=== PATIENT | male | born 1935 | race Caucasian/White ===

== ENCOUNTER 2020-03-11 13:57 | Emergency (ER) | payer MEDICARE ==
[~2020-03-11] VITALS: Ht 172.7 cm; Wt 73.9 kg
[2020-03-11] MEDS ORDERED: TETANUS/DIPHTHERIA TOX ADULT 0.5 ML SYR IM ONE (14:00)
--- NOTE | 2020-03-11 15:03 | Diagnostic Imaging Report ---
EXAMINATION: HAND 3+ VIEWS LEFT INDICATION: Trauma COMPARISON: None FINDINGS: Mildly displaced oblique fracture of the second metacarpal with apex dorsal angulation. Associated overlying soft tissue laceration with gauze packing material in place. No additional fractures identified. 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 IMPRESSION: Mildly displaced oblique fracture of the second metacarpal with apex dorsal angulation. Severe first CMC joint degenerative changes. Signed by: Reta Santos MD on 03/11/2020 2:59 PM
[2020-03-11] MEDS ORDERED: CEFAZOLIN SOD 1 GM VIAL IM ONE (15:30)
--- NOTE | 2020-03-11 15:41 | Emergency Department Note ---
History of Present Illnes History of Present Illness Chief Complaint: Laceration History of Present Illness This is a 84 year old male Patient in from home with a laceration to t he back side of his left hand. The patient reports he was using a mitre saw and raised his hand up into the saw blade. Patient arrived with a gross amount of blood on his clothing as well as in the vehicle that brought him here. Dr. Little at bedside for evaluation of laceration. Historian: Patient Arrival Mode: Car Art Objects Salesperson Required: No Onset (how long ago): minute(s) Location: LEFT HAND Quality: LACERATION Radiation: Reports non-radiation Severity: moderate Onset quality: sudden Timing of current episode: constant Progression: unchanged Chronicity: new Context: Denies recent illness Relieving factors: none Exacerbating factors: none Associated symptoms: Reports denies other symptoms Treatments prior to arrival: none Past Medical/Family History Physician Review I have reviewed the patient's past medical and family history. Any updates have been documented here. Past Medical History Recent Fever: No Clinical Suspicion of Infectio: No New/Unexplained Change in Ment: No Past Medical History: Hypertension, CAD, Kidney Stones, GERD, Hyperlipedemia Past Surgical History: CABG, PCI Other Surgery: Rt Shoulder rotator cuff repair Social History Smoking Cessation: Never Smoker Counseling Performed: No Alcohol Use: None Any Illegal Drug Use: No TB Exposure/Symptoms: No Physically hurt or threatened: No Family History Family history of heart diseas: No Other Last Tetanus: unknown Review of Systems Review of Systems Constitutional: Reports no symptoms EENTM: Reports no symptoms Cardiovascular: Reports no symptoms Respiratory: Reports no symptoms Gastrointestinal: Reports no symptoms Genitourinary: Reports no symptoms Musculoskeletal: Reports other (LACERATION TO DORSUM OF LEFT HAND) Integumentary: Reports no symptoms Neurological: Reports no symptoms Psychological: Reports no symptoms Endocrine: Reports no symptoms Hematological/Lymphatic: Reports no symptoms Review of other systems All other systems reviewed and negative. Physical Exam Related Data Allergies: Coded Allergies: No Known Allergies (Unverified , 03/11/20) Triage Vital Signs Vital Signs Date Time Temp Pulse Resp B/P (MAP) Pulse Ox O2 Delivery O2 Flow Rate FiO2 03/11/20 14:03 97.4 116 17 141/95 97 Vital signs reviewed: Yes Physical Exam CONSTITUTIONAL Constitutional: Reports well-developed, Reports well-nourished HENT HENT: Reports normocephalic, Reports atraumatic, Reports oropharynx clear/moist, Reports nose normal HENT L/R: Reports left ext ear normal, Reports right ext ear normal EYES Eyes: Reports PERRL, Reports conjunctivae normal NECK Neck: Reports ROM normal PULMONARY Pulmonary: Reports effort normal, Reports breath sounds normal CARDIOVASCULAR Cardiovascular: Reports regular rhythm, Reports heart sounds normal, Reports capillary refill normal, Reports normal rate GASTROINTESTINAL Abdominal: Reports soft, Reports nontender, Reports bowel sounds normal GENITOURINARY Genitourinary: Reports exam deferred SKIN Skin: Reports warm, Reports dry MUSCULOSKELETAL Musculoskeletal: Reports other (8 CM LACERATION TO DORSUM LEFT HAND, NO EXTENSION STR OF INDEX AND LONG FINGER (EXT TENDON LACERATIION)) NEUROLOGICAL Neurological: Reports alert, Reports oriented x 3, Reports no gross motor or sensory deficits PSYCHOLOGICAL Psychological: Reports mood/affect normal, Reports judgement normal Results Imaging Imaging results reviewed: Yes Impressions EXAMINATION: HAND 3+ VIEWS LEFT INDICATION: Trauma COMPARISON: None FINDINGS: Mildly displaced oblique fracture of the second metacarpal with apex dorsal angulation. Associated overlying soft tissue laceration with gauze packing material in place. No additional fractures identified. 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 IMPRESSION: Mildly displaced oblique fracture of the second metacarpal with apex dorsal angulation. Severe first CMC joint degenerative changes. Signed by: Reta Santos MD on 03/11/2020 2:59 PM Assessment & Plan Medical Decision Making MDM LACERATION REPAIR BY DR ARCHIBALD, IRRIGATED COPIOUSLY Reassessment Reassessment PER DR CRISTELA DC WITH KEFLEX/BACTRIM, F/U WITH [facility] HAND SURGEON. I ALSO GAVE TYL#3 Assessment & Plan Final Impression: (1) Open fracture of metacarpal bone of left hand (2) Laceration of hand, left Depart Disposition: HOME, SELF-CARE Last Vital Signs Date Time Temp Pulse Resp B/P (MAP) Pulse Ox O2 Delivery O2 Flow Rate FiO2 03/11/20 14:03 97.4 116 17 141/95 97 Medications in the ED Tetanus/ Diphtheria Toxoids 0.5 ml ONCE ONCE IM Last administered on 03/11/20at 15:13; Admin Dose 0.5 ML; Start 03/11/20 at 14:00; Stop 03/11/20 at 14:01; Status DC Cefazolin Sodium 1 gm NOW ONCE IM ; Start 03/11/20 at 15:30; Stop 03/11/20 at 15:31; Status JUANITA RAMIREZ MD Mar 11, 2020 15:41
--- NOTE | 2020-03-13 15:18 | Operative Report ---
DATE OF PROCEDURE: 03/11/2020 SURGEON: Dale Melendez MD CHIEF COMPLAINT: Powered saw injury, left hand. POSTOPERATIVE DIAGNOSES: 1. Open fracture, left index finger metacarpal shaft. 2. Laceration of left index finger extensor tendon. 3. Laceration of left long finger extensor tendon. ANESTHESIA: Local. HISTORY: The patient is an 84-year-old [id number] male, who was using a powered miter saw earlier today when the saw cut him on the dorsal aspect of the left hand. The patient is on oral anticoagulation and was bleeding quite profusely, came to the emergency room. A pressure dressing was placed and radiographs indicate presence of displaced fracture of the shaft and given the nature of this injury, this was an open fracture. Emergent Hand Surgery consultation was then requested. PROCEDURE IN DETAIL: The patient's pressure dressing was removed and the skin was gently cleansed with alcohol prep pads, 1% Xylocaine with epinephrine was injected into the soft tissues of the wound. Once hemostasis had been achieved, the length of the wound was measured and measured 8.5 cm, and extended from the dorsal aspect of the base of the left thumb across the metacarpals to the ulnar side of the hand. There were exposed lacerated tendons to the left index and the left long fingers. The fracture fragments were exposed. The wound was then copiously irrigated of all particulate matter using several 100 mL of dilute Betadine solution. At this point, once all the particulate matter had been removed, the soft tissues were closed with 5-0 Prolene in a running subcuticular fashion. Bactroban ointment, Xeroform gauze, and a sterile dressing were applied. A fiberglass splint was fashioned to maintain the wrist in a modest amount of extension and the MPs at 60 to 70 degrees and the IPs neutral, and this was held in place with a loosely wrapped Anton wrap. The patient was given intravenous antibiotics and then discharged 1st per ER protocol on oral antibiotics and oral analgesic medication. Dale Melendez MD ER/MODL /[id number]
== END 2020-03-11 16:15 | disposition home or self-care (01) ==
LOC: ER 13:57
DX: S62.301B Unspecified fracture of second metacarpal bone, left hand, initial encounter for open fracture (principal); W29.3XXA Contact with powered garden and outdoor hand tools and machinery, initial encounter; Y92.008 Other place in unspecified non-institutional (private) residence as the place of occurrence of the external cause; I10 Essential (primary) hypertension; E78.5 Hyperlipidemia, unspecified; I25.10 Atherosclerotic heart disease of native coronary artery without angina pectoris; K21.9 Gastro-esophageal reflux disease without esophagitis; Z95.1 Presence of aortocoronary bypass graft
CPT/HCPCS: 90714; 99284

== ENCOUNTER 2021-03-17 15:08 | Inpatient (IN) | payer MEDICARE ==
[~2021-03-17] VITALS: Ht 172.7 cm; Wt 77.2 kg
[2021-03-17] MEDS ORDERED: SODIUM CHLORIDE 0.9% 1000ML 1,000 ML IV STA (15:31)
[2021-03-17 15:52] LABS: BASOPHILS % 0.5 % (0.0-1.0); EOSINOPHILS # (AUTO) 0.1 (0.0-0.4); EOSINOPHILS % 0.8 % (0.0-6.0); HEMATOCRIT 34.3 % (38.2-49.6); HEMOGLOBIN 12.4 g/dL (14.0-18.0); LYMPHOCYTES # (AUTO) 1.3 (1.0-3.2); LYMPHOCYTES % 22.7 % (18.0-39.1); MEAN CORPUSCULAR HEMOGLOBIN 31.2 pg (28-32); MEAN CORPUSCULAR HGB CONC 36.2 g/dL (31-35); MEAN CORPUSCULAR VOLUME 86.2 fL (81-99); MONOCYTES # (AUTO) 0.7 (0.2-0.8); MONOCYTES % 12.5 % (4.4-11.3); NEUTROPHILS # (AUTO) 3.7 (2.1-6.9); NEUTROPHILS % 63.2 % (38.7-80.0); PLATELET COUNT 191 x10e3/uL (140-360); RED BLOOD COUNT 3.98 x10e6/uL (4.3-5.7)
[2021-03-17 16:07] LABS: ALANINE AMINOTRANSFERASE 11 IU/L (0-55); ALBUMIN 3.4 g/dL (3.5-5.0); ALBUMIN/GLOBULIN RATIO 1.4 (0.8-2.0); ALKALINE PHOSPHATASE 59 IU/L (40-150); BLOOD UREA NITROGEN 17 mg/dL (7-26); BUN/CREATININE RATIO 15 (6-25); CALCIUM 8.1 mg/dL (8.4-10.2); CARBON DIOXIDE 26 mmol/L (22-29); CHLORIDE 87 mmol/L (98-107); CREATINE KINASE 104 IU/L (30-200); CREATININE, SERUM 1.12 mg/dL (0.72-1.25); EST GLOMERULAR FILTRATION RATE > 60 ML/MIN (60-); GLUCOSE 104 mg/dL (74-118); SODIUM 122 mmol/L (136-145)
[2021-03-17] MEDS: SODIUM CHLORIDE 0.9% 1000ML 1,000 ML IV SCH ×2 (16:58→20:32)
[2021-03-17] MEDS ORDERED: RABEPRAZOLE SOD20 MG PO (17:45)
[2021-03-17] MEDS ORDERED: LOW DOSE ASPIRI81 MG PEG (17:45)
[2021-03-17] MEDS ORDERED: HYDROCHLOROTH12.5 MG PO (17:45)
[2021-03-17] MEDS ORDERED: MELATONIN3 MG PO (17:45)
[2021-03-17] MEDS ORDERED: SIMVASTATIN40 MG PO (17:45)
[2021-03-17] MEDS ORDERED: CLOPIDOGREL75 MG PO (17:45)
[2021-03-17] MEDS ORDERED: ACETAMINOPHEN 325 MG TAB PO PRN (18:00)
[2021-03-17] MEDS ORDERED: ONDANSETRON HCL INJ 2MG/ML 2ML 2 MG/ML VIAL IV PRN (18:00)
[2021-03-17] MEDS ORDERED: HYDRALAZINE HCL 20 MG/ML VIAL IV PRN (18:00)
[2021-03-17 19:55] LABS: CLARITY,URINE TURBID (CLEAR); COLOR,URINE GREEN (YELLOW); KETONES,URINE NEGATIVE (NEGATIVE); LEUKOCYTE ESTERASE ,URINE NEGATIVE (NEGATIVE); NITRITE,URINE NEGATIVE (NEGATIVE); PROTEIN,URINE DIPSTICK 2+ (NEGATIVE)
[2021-03-17 19:56] LABS: URINE UROBILINOGEN 0.2 mg/dL (0.2 - 1)
[2021-03-17 20:00] LABS: AMORPHOUS SEDIMENT,URINE FEW (FEW); BACTERIA,URINE RARE /HPF; RBC,URINE >50 /HPF (0-5); WBC,URINE (MAN) 0-5 /HPF (0-5)
[2021-03-17] MEDS: SIMVASTATIN 40 MG TAB PO SCH (20:27)
[2021-03-17] MEDS: CLOPIDOGREL BISULFATE 75 MG TAB PO SCH (20:27)
[2021-03-17 20:48] VITALS: BP 146/82
[2021-03-17 21:00] VITALS: BP 146/82
[2021-03-18] VITALS (8 sets, daily range): BP systolic 134–160; BP diastolic 71–86
[2021-03-18 01:12] LABS: CREATINE KINASE 113 IU/L (30-200)
[2021-03-18 05:09] LABS: BASOPHILS % 0.6 % (0.0-1.0); EOSINOPHILS # (AUTO) 0.1 (0.0-0.4); EOSINOPHILS % 0.7 % (0.0-6.0); HEMATOCRIT 32.2 % (38.2-49.6); HEMOGLOBIN 11.1 g/dL (14.0-18.0); LYMPHOCYTES # (AUTO) 1.6 (1.0-3.2); LYMPHOCYTES % 23.5 % (18.0-39.1); MEAN CORPUSCULAR HEMOGLOBIN 30.2 pg (28-32); MEAN CORPUSCULAR HGB CONC 34.5 g/dL (31-35); MEAN CORPUSCULAR VOLUME 87.7 fL (81-99); MONOCYTES # (AUTO) 0.7 (0.2-0.8); MONOCYTES % 10.6 % (4.4-11.3); NEUTROPHILS # (AUTO) 4.4 (2.1-6.9); NEUTROPHILS % 64.3 % (38.7-80.0); PLATELET COUNT 164 x10e3/uL (140-360); RED BLOOD COUNT 3.67 x10e6/uL (4.3-5.7); RED CELL DISTRIBUTION WIDTH 11.9 % (11.7-14.4)
[2021-03-18 05:27] LABS: ALANINE AMINOTRANSFERASE 9 IU/L (0-55); ALBUMIN 3.2 g/dL (3.5-5.0); ALBUMIN/GLOBULIN RATIO 1.3 (0.8-2.0); ALKALINE PHOSPHATASE 54 IU/L (40-150); ANION GAP 11.8 mmol/L (8-16); BLOOD UREA NITROGEN 12 mg/dL (7-26); BUN/CREATININE RATIO 13 (6-25); CALCIUM 7.9 mg/dL (8.4-10.2); CARBON DIOXIDE 28 mmol/L (22-29); CHLORIDE 90 mmol/L (98-107); CREATININE, SERUM 0.92 mg/dL (0.72-1.25); EST GLOMERULAR FILTRATION RATE > 60 ML/MIN (60-); GLUCOSE 105 mg/dL (74-118); POTASSIUM 3.8 mmol/L (3.5-5.1); SODIUM 126 mmol/L (136-145)
[2021-03-18] MEDS: SODIUM CHLORIDE 0.9% 1000ML 1,000 ML IV SCH ×3 (05:30→23:11)
[2021-03-18 05:40] LABS: CREATINE KINASE 107 IU/L (30-200)
[2021-03-18] MEDS: ASPIRIN 81 MG ENTERIC COATED PO SCH (08:21)
[2021-03-18 11:56] LABS: CHOL/HDL RATIO 2.5 (3.9-4.7)
[2021-03-18 12:41] LABS: THYROID STIMULATING HORMONE 1.008 uIU/mL (0.350-4.940)
[2021-03-18] MEDS ORDERED: IOPAMIDOL 370 MG/ML 200 ML INFUS..BTL INJ ONE (19:43)
[2021-03-18] MEDS ORDERED: SODIUM CHLORIDE 0.9% 100 ML ONE (19:43)
[2021-03-18] MEDS: CLOPIDOGREL BISULFATE 75 MG TAB PO SCH (21:50)
[2021-03-18] MEDS: SIMVASTATIN 40 MG TAB PO SCH (21:50)
[2021-03-18] MEDS ORDERED: ACETAMINOPHEN/CODEINE 300MG - 30MG TAB PO PRN (23:45)
[2021-03-19] VITALS (8 sets, daily range): BP systolic 149–165; BP diastolic 73–84
[2021-03-19 05:30] LABS: BASOPHILS # (AUTO) 0.1 (0.0-0.1); BASOPHILS % 0.6 % (0.0-1.0); EOSINOPHILS # (AUTO) 0.1 (0.0-0.4); EOSINOPHILS % 0.9 % (0.0-6.0); HEMATOCRIT 32.8 % (38.2-49.6); HEMOGLOBIN 11.4 g/dL (14.0-18.0); LYMPHOCYTES # (AUTO) 1.8 (1.0-3.2); LYMPHOCYTES % 22.5 % (18.0-39.1); MEAN CORPUSCULAR HEMOGLOBIN 30.6 pg (28-32); MEAN CORPUSCULAR HGB CONC 34.8 g/dL (31-35); MEAN CORPUSCULAR VOLUME 88.2 fL (81-99); MONOCYTES # (AUTO) 0.9 (0.2-0.8); MONOCYTES % 11.6 % (4.4-11.3); NEUTROPHILS # (AUTO) 5.1 (2.1-6.9); PLATELET COUNT 177 x10e3/uL (140-360); RED BLOOD COUNT 3.72 x10e6/uL (4.3-5.7)
[2021-03-19 05:56] LABS: ALANINE AMINOTRANSFERASE 10 IU/L (0-55); ALBUMIN 2.9 g/dL (3.5-5.0); ALBUMIN/GLOBULIN RATIO 1.2 (0.8-2.0); ALKALINE PHOSPHATASE 50 IU/L (40-150); BLOOD UREA NITROGEN 11 mg/dL (7-26); BUN/CREATININE RATIO 10 (6-25); CALCIUM 7.7 mg/dL (8.4-10.2); CARBON DIOXIDE 26 mmol/L (22-29); CHLORIDE 94 mmol/L (98-107); CHOL/HDL RATIO 2.5 (3.9-4.7); CHOLESTEROL 92 MD/DL (0-199); CREATININE, SERUM 1.05 mg/dL (0.72-1.25); EST GLOMERULAR FILTRATION RATE > 60 ML/MIN (60-); GLUCOSE 109 mg/dL (74-118); HDL CHOLESTEROL 37 MG/DL (40-60); LDL CHOLESTEROL 43 MG/DL (60-130); SODIUM 125 mmol/L (136-145); TRIGLYCERIDES 62 MG/DL (0-149)
[2021-03-19 06:07] LABS: THYROID STIMULATING HORMONE 1.561 uIU/mL (0.350-4.940)
[2021-03-19] MEDS: ASPIRIN 81 MG ENTERIC COATED PO SCH (10:32)
[2021-03-19] MEDS ORDERED: SIMETHICONE 80 MG CHEW PO PRN (11:45)
[2021-03-19] MEDS ORDERED: DIPHENHYDRAMINE HCL 25 MG CAP PO PRN (11:45)
[2021-03-19] MEDS ORDERED: ONDANSETRON HCL INJ 2MG/ML 2ML 2 MG/ML VIAL IV PRN (11:45)
[2021-03-19] MEDS ORDERED: POTASSIUM CHLORIDE 20 MEQ TAB CR PO PRN (11:45)
[2021-03-19] MEDS ORDERED: ACETAMINOPHEN 325 MG TAB PO PRN (11:45)
[2021-03-19] MEDS ORDERED: ALBUTEROL/IPRATROPIUM 3 ML NEB NEB PRN (11:45)
[2021-03-19] MEDS ORDERED: DEXTROSE 50% SYRINGE 50 ML IV PRN (11:45)
[2021-03-19] MEDS: BENZONATATE 100 MG CAP PO PRN (17:20)
[2021-03-19] MEDS: DOCUSATE SODIUM 100 MG CAP PO PRN (17:21)
[2021-03-19] MEDS ORDERED: MELATONIN 5 MG TABLET PO PRN (21:00)
[2021-03-19] MEDS ORDERED: SODIUM CHLORIDE 1 GM TAB PO ONE (21:15)
[2021-03-19] MEDS: CEFEPIME 1 GM in SODIUM CHLORIDE 0.9% 50ML 50 ML IV SCH (21:29)
[2021-03-19] MEDS: CLOPIDOGREL BISULFATE 75 MG TAB PO SCH (21:29)
[2021-03-19] MEDS: SIMVASTATIN 40 MG TAB PO SCH (21:29)
[2021-03-20] VITALS (8 sets, daily range): BP systolic 135–158; BP diastolic 75–85
[2021-03-20 06:20] LABS: BASOPHILS # (AUTO) 0.1 (0.0-0.1); BASOPHILS % 0.8 % (0.0-1.0); EOSINOPHILS # (AUTO) 0.1 (0.0-0.4); EOSINOPHILS % 1.2 % (0.0-6.0); HEMOGLOBIN 11.3 g/dL (14.0-18.0); LYMPHOCYTES % 21.2 % (18.0-39.1); MEAN CORPUSCULAR HEMOGLOBIN 30.5 pg (28-32); MEAN CORPUSCULAR HGB CONC 34.2 g/dL (31-35); MEAN CORPUSCULAR VOLUME 88.9 fL (81-99); MONOCYTES % 11.2 % (4.4-11.3); NEUTROPHILS # (AUTO) 6.1 (2.1-6.9); NEUTROPHILS % 65.1 % (38.7-80.0); PLATELET COUNT 188 x10e3/uL (140-360); RED BLOOD COUNT 3.71 x10e6/uL (4.3-5.7); RED CELL DISTRIBUTION WIDTH 12.2 % (11.7-14.4)
[2021-03-20 06:51] LABS: ANION GAP 11.7 mmol/L (8-16); CALCIUM 8.1 mg/dL (8.4-10.2); CREATININE, SERUM 1.18 mg/dL (0.72-1.25); POTASSIUM 4.7 mmol/L (3.5-5.1)
[2021-03-20] MEDS: CEFEPIME 1 GM in SODIUM CHLORIDE 0.9% 50ML 50 ML IV SCH ×2 (10:00→21:03)
[2021-03-20] MEDS: ASPIRIN 81 MG ENTERIC COATED PO SCH (10:00)
[2021-03-20] MEDS: BENZONATATE 100 MG CAP PO PRN (10:00)
[2021-03-20] MEDS: DOCUSATE SODIUM 100 MG CAP PO PRN (10:00)
[2021-03-20] MEDS: PANTOPRAZOLE SOD 40 MG TABEC PO SCH (10:30)
[2021-03-20] MEDS ORDERED: SODIUM CHLORIDE 1 GM TAB PO SCH (13:00)
[2021-03-20] MEDS ORDERED: SODIUM CHLORIDE 1 GM TAB PO ONE (20:00)
[2021-03-20] MEDS: SIMVASTATIN 40 MG TAB PO SCH (21:03)
[2021-03-20] MEDS: CLOPIDOGREL BISULFATE 75 MG TAB PO SCH (21:03)
[2021-03-21 06:48] LABS: BLOOD UREA NITROGEN 12 mg/dL (7-26); BUN/CREATININE RATIO 15 (6-25); CALCIUM 9.1 mg/dL (8.4-10.2); CARBON DIOXIDE 28 mmol/L (22-29); CHLORIDE 97 mmol/L (98-107); CREATININE, SERUM 0.81 mg/dL (0.72-1.25); EST GLOMERULAR FILTRATION RATE > 60 ML/MIN (60-); GLUCOSE 103 mg/dL (74-118); SODIUM 132 mmol/L (136-145)
[2021-03-21] MEDS: PANTOPRAZOLE SOD 40 MG TABEC PO SCH (07:30)
[2021-03-21] MEDS: ASPIRIN 81 MG ENTERIC COATED PO SCH (09:00)
[2021-03-21] MEDS: CEFEPIME 1 GM in SODIUM CHLORIDE 0.9% 50ML 50 ML IV SCH (09:00)
[2021-03-21 11:47] VITALS: BP 156/69
== END 2021-03-21 14:06 | disposition home or self-care (01) | DRG 641 ==
LOC: ER 15:31 → ERHOLD 16:38 → MED/SURG 20:10
PROVIDERS: ADMIT Internal Medicine; ATTEND Internal Medicine
DX: E87.1 Hypo-osmolality and hyponatremia (principal); T50.2X5A Adverse effect of carbonic-anhydrase inhibitors, benzothiadiazides and other diuretics, initial encounter; I10 Essential (primary) hypertension; I25.10 Atherosclerotic heart disease of native coronary artery without angina pectoris; K21.9 Gastro-esophageal reflux disease without esophagitis; E78.5 Hyperlipidemia, unspecified; I65.22 Occlusion and stenosis of left carotid artery; Z91.81 History of falling; Z86.73 Personal history of transient ischemic attack (TIA), and cerebral infarction without residual deficits; Z87.442 Personal history of urinary calculi; Z95.1 Presence of aortocoronary bypass graft
CPT/HCPCS: 36415; 70450; 70496; 70498; 71045; 80048; 80053; 80061; 81001; 82550; 82553; 83880; 84295; 84443; 84484; 85025; 93005; 93306; 93880; 99251; 99284; J0692; J7030; J7050; Q9967

== ENCOUNTER 2024-12-09 17:07 | Emergency (ER) | payer MEDICARE ==
[~2024-12-09] VITALS: Ht 172.7 cm; Wt 77.1 kg
[~2024-12-09 17:07] MED LIST: CLOPIDOGREL75 MG PO; HYDROCHLOROTH12.5 MG PO; LOW DOSE ASPIRI81 MG PEG; MELATONIN3 MG PO; RABEPRAZOLE SOD20 MG PO; SIMVASTATIN40 MG PO
[2024-12-09 17:42] LABS: BASOPHILS # (AUTO) 0.1 (0.0-0.1); BASOPHILS % 1.1 % (0.0-1.0); EOSINOPHILS # (AUTO) 0.4 (0.0-0.4); EOSINOPHILS % 6.3 % (0.0-6.0); HEMATOCRIT 35.9 % (38.2-49.6); HEMOGLOBIN 12.1 g/dL (14.0-18.0); LYMPHOCYTES # (AUTO) 2.4 (1.0-3.2); LYMPHOCYTES % 33.5 % (18.0-39.1); MEAN CORPUSCULAR HEMOGLOBIN 31.8 pg (28-32); MEAN CORPUSCULAR HGB CONC 33.7 g/dL (31-35); MEAN CORPUSCULAR VOLUME 94.2 fL (81-99); MONOCYTES # (AUTO) 0.8 (0.2-0.8); MONOCYTES % 11.3 % (4.4-11.3); NEUTROPHILS # (AUTO) 3.3 (2.1-6.9); NEUTROPHILS % 47.5 % (38.7-80.0); PLATELET COUNT 196 x10e3/uL (140-360); RED BLOOD COUNT 3.81 x10e6/uL (4.3-5.7); RED CELL DISTRIBUTION WIDTH 12.9 % (11.7-14.4); WHITE BLOOD COUNT 7.01 x10e3/uL (4.8-10.8)
[2024-12-09] MEDS ORDERED: SODIUM CHLORIDE FLUSH 10 ML SYR IV PRN (17:45)
[2024-12-09 18:00] LABS: ALANINE AMINOTRANSFERASE 19 IU/L (0-55); ALBUMIN 3.6 g/dL (3.5-5.0); ALBUMIN/GLOBULIN RATIO 1.2 (0.8-2.0); ALKALINE PHOSPHATASE 41 IU/L (40-150); ANION GAP 13.5 mmol/L (8-16); BILIRUBIN,TOTAL 0.4 mg/dL (0.2-1.2); BLOOD UREA NITROGEN 21 mg/dL (7-26); BUN/CREATININE RATIO 19 (6-25); CALCIUM 8.9 mg/dL (8.4-10.2); CARBON DIOXIDE 24 mmol/L (22-29); CHLORIDE 98 mmol/L (98-107); CREATININE, SERUM 1.13 mg/dL (0.72-1.25); EST GLOMERULAR FILTRATION RATE 63 ML/MIN (>=60); GLUCOSE 115 mg/dL (74-118); POTASSIUM 4.5 mmol/L (3.5-5.1); SODIUM 131 mmol/L (136-145); TOTAL PROTEIN 6.6 g/dL (6.5-8.1)
[2024-12-09 18:19] LABS: TROPONIN I < 0.001 ng/mL (0-0.300)
[2024-12-09 18:52] VITALS: PULSE 81; RESP 22; TEMP 98.2
[2024-12-09 20:40] VITALS: BP 165/85; PULSE 81; RESP 20; TEMP 98; O2SAT 96
== END 2024-12-09 20:42 | disposition home or self-care (01) ==
LOC: ER 17:42
DX: R42 Dizziness and giddiness (principal); R41.0 Disorientation, unspecified; I10 Essential (primary) hypertension; E78.5 Hyperlipidemia, unspecified; I25.10 Atherosclerotic heart disease of native coronary artery without angina pectoris; K21.9 Gastro-esophageal reflux disease without esophagitis; I25.2 Old myocardial infarction; Z95.1 Presence of aortocoronary bypass graft
CPT/HCPCS: 36415; 70450; 71045; 80053; 83880; 84484; 85025; 93005; 99284

== ENCOUNTER 2025-01-24 09:13 | Inpatient (IN) | payer MEDICARE ==
[~2025-01-24] VITALS: Ht 172.7 cm; Wt 77.1 kg
[2025-01-24] VITALS (8 sets, daily range): BP systolic 127–137; BP diastolic 80–84; PULSE 82–97; RESP 18–20; TEMP 97.5–98.7; O2SAT 95–99
[2025-01-24 10:03] LABS: BASOPHILS # (AUTO) 0.1 (0.0-0.1); BASOPHILS % 0.7 % (0.0-1.0); EOSINOPHILS # (AUTO) 0.3 (0.0-0.4); EOSINOPHILS % 3.7 % (0.0-6.0); HEMATOCRIT 34.9 % (38.2-49.6); HEMOGLOBIN 11.7 g/dL (14.0-18.0); LYMPHOCYTES # (AUTO) 1.5 (1.0-3.2); LYMPHOCYTES % 21.7 % (18.0-39.1); MEAN CORPUSCULAR HEMOGLOBIN 31.5 pg (28-32); MEAN CORPUSCULAR HGB CONC 33.5 g/dL (31-35); MEAN CORPUSCULAR VOLUME 94.1 fL (81-99); MONOCYTES # (AUTO) 0.7 (0.2-0.8); MONOCYTES % 10.3 % (4.4-11.3); NEUTROPHILS # (AUTO) 4.4 (2.1-6.9); NEUTROPHILS % 63.3 % (38.7-80.0); PLATELET COUNT 240 x10e3/uL (140-360); RED BLOOD COUNT 3.71 x10e6/uL (4.3-5.7); RED CELL DISTRIBUTION WIDTH 13.4 % (11.7-14.4)
[2025-01-24 10:37] LABS: INR 0.99; PROTHROMBIN TIME 13.7 seconds (11.9-14.5)
[2025-01-24 10:38] LABS: PARTIAL THROMBOPLASTIN TIME 35.8 seconds (23.8-35.5)
[2025-01-24 10:51] LABS: ALBUMIN 3.5 g/dL (3.5-5.0); ALBUMIN/GLOBULIN RATIO 1.1 (0.8-2.0); ANION GAP 13.9 mmol/L (8-16); BILIRUBIN,TOTAL 0.7 mg/dL (0.2-1.2); CALCIUM 8.6 mg/dL (8.4-10.2); CREATININE, SERUM 0.83 mg/dL (0.72-1.25); POTASSIUM 4.9 mmol/L (3.5-5.1); TOTAL PROTEIN 6.6 g/dL (6.5-8.1)
[2025-01-24 11:17] LABS: CLARITY,URINE CLEAR (CLEAR); COLOR,URINE YELLOW (YELLOW); GLUCOSE, URINE NEGATIVE (NEGATIVE); KETONES,URINE 1+ (NEGATIVE); LEUKOCYTE ESTERASE ,URINE NEGATIVE (NEGATIVE); NITRITE,URINE NEGATIVE (NEGATIVE); PH,URINE 7 (5 - 7); PROTEIN,URINE DIPSTICK TRACE (NEGATIVE)
[2025-01-24 11:18] LABS: BILIRUBIN,URINE NEGATIVE (NEGATIVE); URINE UROBILINOGEN 1 mg/dL (0.2 - 1)
[2025-01-24 11:29] LABS: BACTERIA,URINE FEW /HPF; EPITHELIAL CELLS,URINE FEW /LPF; RBC,URINE 0-5 /HPF (0-5); TRANSITIONAL EPI CELLS,URINE RARE; WBC,URINE (MAN) 0-5 /HPF (0-5)
[2025-01-24] MEDS ORDERED: SODIUM CHLORIDE 0.9% 250ML 250 ML ONE (12:26)
[2025-01-24] MEDS ORDERED: ONDANSETRON HCL INJ 2MG/ML 2ML 2 MG/ML VIAL IV PRN (12:30)
[2025-01-24] MEDS ORDERED: PIPERACILLIN/TAZOBACTAM 3.375 GM VIAL ONE (12:36)
[2025-01-24] MEDS: FUROSEMIDE INJ 10 MG/ML 2 ML VIAL IV ONE (12:38)
[2025-01-24 13:01] LABS: CORONAVIRUS COVID-19 AG NEGATIVE (NEGATIVE); INFLUENZA A AG NEGATIVE (NEGATIVE); INFLUENZA B AG NEGATIVE (NEGATIVE)
[2025-01-24] MEDS ORDERED: ACETAMINOPHEN 325 MG TAB PO PRN (17:00)
[2025-01-24] MEDS ORDERED: SIMETHICONE 80 MG CHEW PO PRN (17:00)
[2025-01-24] MEDS ORDERED: DOCUSATE SODIUM 100 MG CAP PO PRN (17:00)
[2025-01-24] MEDS ORDERED: DIPHENHYDRAMINE HCL 25 MG CAP PO PRN (17:00)
[2025-01-24] MEDS ORDERED: DEXTROSE 50% SYRINGE 50 ML IV PRN (17:00)
[2025-01-24] MEDS ORDERED: BENZONATATE 100 MG CAP PO PRN (17:00)
[2025-01-24] MEDS ORDERED: LIDOCAINE 4% PATCH TP PRN (17:00)
[2025-01-24] MEDS ORDERED: POTASSIUM CHLORIDE 20 MEQ TAB CR PO PRN (17:00)
[2025-01-24] MEDS ORDERED: HYDRALAZINE HCL 20 MG/ML VIAL IV PRN (17:00)
[2025-01-24] MEDS ORDERED: ALBUTEROL/IPRATROPIUM 3 ML NEB NEB PRN (17:00)
[2025-01-24] MEDS: ENOXAPARIN SOD INJ 40 MG/0.4 ML SYR SC SCH (17:49)
[2025-01-24] MEDS: FUROSEMIDE INJ 10 MG/ML 4 ML VIAL IV ONE (17:49)
[2025-01-24] MEDS ORDERED: MELATONIN 5 MG TABLET PO PRN (21:00)
[2025-01-24] MEDS: CLOPIDOGREL BISULFATE 75 MG TAB PO SCH (21:07)
[2025-01-24] MEDS: SIMVASTATIN 40 MG TAB PO SCH (21:07)
[2025-01-24] MEDS: FUROSEMIDE INJ 10 MG/ML 4 ML VIAL IV SCH (21:09)
[2025-01-25] VITALS (7 sets, daily range): BP systolic 102–132; BP diastolic 64–81; PULSE 82–94; RESP 18–19; TEMP 97.2–98.6; O2SAT 96–100
[2025-01-25 05:41] LABS: BASOPHILS # (AUTO) 0.1 (0.0-0.1); EOSINOPHILS # (AUTO) 0.3 (0.0-0.4); EOSINOPHILS % 5.1 % (0.0-6.0); HEMATOCRIT 34.5 % (38.2-49.6); HEMOGLOBIN 11.8 g/dL (14.0-18.0); LYMPHOCYTES # (AUTO) 1.9 (1.0-3.2); LYMPHOCYTES % 29.8 % (18.0-39.1); MEAN CORPUSCULAR HEMOGLOBIN 31.4 pg (28-32); MEAN CORPUSCULAR HGB CONC 34.2 g/dL (31-35); MEAN CORPUSCULAR VOLUME 91.8 fL (81-99); MONOCYTES # (AUTO) 0.8 (0.2-0.8); MONOCYTES % 13.4 % (4.4-11.3); NEUTROPHILS # (AUTO) 3.2 (2.1-6.9); NEUTROPHILS % 50.4 % (38.7-80.0); PLATELET COUNT 239 x10e3/uL (140-360); RED BLOOD COUNT 3.76 x10e6/uL (4.3-5.7); RED CELL DISTRIBUTION WIDTH 13.3 % (11.7-14.4); WHITE BLOOD COUNT 6.27 x10e3/uL (4.8-10.8)
[2025-01-25 06:08] LABS: MAGNESIUM 2.1 MG/DL (1.3-2.1); PHOSPHORUS 2.6 MG/DL (2.3-4.7)
[2025-01-25 06:11] LABS: ALBUMIN 3.4 g/dL (3.5-5.0); ALBUMIN/GLOBULIN RATIO 1.2 (0.8-2.0); ANION GAP 16.8 mmol/L (8-16); BILIRUBIN,TOTAL 0.6 mg/dL (0.2-1.2); CALCIUM 8.1 mg/dL (8.4-10.2); CREATININE, SERUM 0.92 mg/dL (0.72-1.25); POTASSIUM 3.8 mmol/L (3.5-5.1); TOTAL PROTEIN 6.2 g/dL (6.5-8.1)
[2025-01-25 06:17] LABS: TROPONIN I 0.023 ng/mL (0-0.300)
[2025-01-25 06:30] LABS: THYROID STIMULATING HORMONE 1.717 uIU/mL (0.350-4.940)
[2025-01-25] MEDS: PANTOPRAZOLE SOD 40 MG TABEC PO SCH (08:28)
[2025-01-25] MEDS: ASPIRIN 81 MG ENTERIC COATED PO SCH (08:28)
[2025-01-25] MEDS: Vancomycin IV 1 GM in SODIUM CHLORIDE 0.9% 250ML 250 ML IV SCH (13:48)
[2025-01-25] MEDS: FUROSEMIDE 40 MG TAB PO SCH (17:36)
[2025-01-26] VITALS (11 sets, daily range): BP systolic 112–133; BP diastolic 57–79; PULSE 65–98; RESP 16–20; TEMP 97.2–99; O2SAT 92–99
[2025-01-26 05:20] LABS: BASOPHILS # (AUTO) 0.1 (0.0-0.1); BASOPHILS % 0.8 % (0.0-1.0); EOSINOPHILS # (AUTO) 0.5 (0.0-0.4); EOSINOPHILS % 7.3 % (0.0-6.0); HEMATOCRIT 35.3 % (38.2-49.6); HEMOGLOBIN 11.8 g/dL (14.0-18.0); LYMPHOCYTES # (AUTO) 2.4 (1.0-3.2); LYMPHOCYTES % 34.2 % (18.0-39.1); MEAN CORPUSCULAR HEMOGLOBIN 31.3 pg (28-32); MEAN CORPUSCULAR HGB CONC 33.4 g/dL (31-35); MEAN CORPUSCULAR VOLUME 93.6 fL (81-99); MONOCYTES # (AUTO) 0.9 (0.2-0.8); MONOCYTES % 12.6 % (4.4-11.3); NEUTROPHILS # (AUTO) 3.2 (2.1-6.9); NEUTROPHILS % 44.8 % (38.7-80.0); PLATELET COUNT 257 x10e3/uL (140-360); RED BLOOD COUNT 3.77 x10e6/uL (4.3-5.7); RED CELL DISTRIBUTION WIDTH 13.3 % (11.7-14.4); WHITE BLOOD COUNT 7.08 x10e3/uL (4.8-10.8)
[2025-01-26 05:49] LABS: ANION GAP 14.6 mmol/L (8-16); CALCIUM 8.3 mg/dL (8.4-10.2); CREATININE, SERUM 0.9 mg/dL (0.72-1.25); POTASSIUM 3.6 mmol/L (3.5-5.1)
[2025-01-26 06:07] LABS: TROPONIN I 0.02 ng/mL (0-0.300)
[2025-01-26] MEDS: FUROSEMIDE 40 MG TAB PO SCH (08:46)
[2025-01-26] MEDS: SODIUM CHLORIDE 1 GM TAB PO SCH (16:30)
[2025-01-27] VITALS: BP 173/68; PULSE 95; RESP 18; TEMP 97.6; O2SAT 99
[2025-01-27 04:00] VITALS: BP 127/84; PULSE 92; RESP 20; TEMP 97.7; O2SAT 97
[2025-01-27 06:41] LABS: ANION GAP 13.8 mmol/L (8-16); CALCIUM 8.2 mg/dL (8.4-10.2); CREATININE, SERUM 0.84 mg/dL (0.72-1.25); POTASSIUM 3.8 mmol/L (3.5-5.1)
[2025-01-27 07:25] VITALS: BP 141/93; PULSE 100; RESP 18; TEMP 97.8; O2SAT 100
[2025-01-27 07:47] VITALS: PULSE 84; RESP 17; O2SAT 97
[2025-01-27] MEDS: CEFTRIAXONE 2 GM in SODIUM CHLORIDE 0.9% 100 ML IV SCH (09:33)
[2025-01-27 11:06] VITALS: BP 122/62; PULSE 78; RESP 17; TEMP 97.9; O2SAT 99
[2025-01-27] MEDS ORDERED: SODIUM CHLORI1000 MG PO (14:42)
[2025-01-28] MEDS ORDERED: LOSARTAN POTASSIUM 100 MG TAB PO SCH (09:00)
[2025-01-28] MEDS ORDERED: METOPROLOL SUCCINATE 25 MG TAB XL PO SCH (09:00)
== END 2025-01-27 17:41 | disposition home or self-care (01) | DRG 291 ==
LOC: ER 09:17 → ERHOLD 12:25 → MED/SURG2 15:00
PROVIDERS: ADMIT Internal Medicine; ATTEND Internal Medicine
DX: I11.0 Hypertensive heart disease with heart failure (principal); I50.33 Acute on chronic diastolic (congestive) heart failure; J18.9 Pneumonia, unspecified organism; E87.1 Hypo-osmolality and hyponatremia; I25.10 Atherosclerotic heart disease of native coronary artery without angina pectoris; I25.2 Old myocardial infarction; Z95.1 Presence of aortocoronary bypass graft; Z95.5 Presence of coronary angioplasty implant and graft; I49.3 Ventricular premature depolarization; I49.1 Atrial premature depolarization; I44.0 Atrioventricular block, first degree; I34.0 Nonrheumatic mitral (valve) insufficiency; K21.9 Gastro-esophageal reflux disease without esophagitis; E78.00 Pure hypercholesterolemia, unspecified; T50.2X5A Adverse effect of carbonic-anhydrase inhibitors, benzothiadiazides and other diuretics, initial encounter; Y92.009 Unspecified place in unspecified non-institutional (private) residence as the place of occurrence of the external cause; Z11.52 Encounter for screening for COVID-19; Z79.899 Other long term (current) drug therapy; Z79.02 Long term (current) use of antithrombotics/antiplatelets
CPT/HCPCS: 36415; 71045; 80048; 80053; 80061; 80202; 81001; 82550; 83036; 83690; 83735; 83880; 84100; 84443; 84484; 85025; 85610; 85730; 87040; 87071; 87086; 87205; 93005; 93306; 94799; 99284; J0696; J1650; J1938; J1940; J2470; J2543; J7050